=== PATIENT | female | born 1995 | race Caucasian/White ===

== ENCOUNTER → 2016-10-01 | Outpatient (CLI) | payer BC ==
[~2016-10-01] MED LIST: BIRTH CONTROL PO; CATHETER FLUSH 10 ML SYR IV PRN; CLIN-62 PO; CYCL10TA45 PO; DESO1TAB4 PO; DICY20TA57 PO; ESOM20TA PO; FAMO20TA5 PO; FLUC100T PO; HYDR25CA PO; HYOS0.1216 PO; IOHEXOL 350 MG/ML 100 ML (OMNIPAQUE 350) VIAL IV ONE; MAGN296S PO; NAPR500T3 PO; NITR-65 PO; NS 100 ML (IVPB) BAG IV ONE; OMEP40CA36 PO; ONDA8TAB13 PO; PANT40TA2 PO; PHEN200T27 PO; PRED20TA PO; SCR1T PO; SUCR1TAB PO; SUCR1TAB36 PO; SULF-222 PO; TRAM-42 PO; TRAM50TA2 PO
--- NOTE | 2016-10-01 16:20 | Diagnostic Imaging Report ---
PROCEDURE: CT head with and without contrast. TECHNIQUE: Multiple contiguous axial images were obtained through the brain before and after the administration of intravenous contrast. INDICATION: Tingling in the right side of the body. Headache. 80 mL of Omnipaque 350 is administered intravenously. FINDINGS: The unenhanced phase demonstrates no intracranial hemorrhage. The brain parenchyma has preserved fajardo-white matter differentiation. There is no hydrocephalus. No extra-axial fluid collection is seen. No abnormal enhancement is seen after contrast administration. The visualized portions of the paranasal sinuses demonstrate mild mucosal thickening in the sphenoidal sinuses. The calvarium appears unremarkable. IMPRESSION: 1. No intracranial abnormality. 2. Mild mucosal thickening in the sphenoidal sinuses. Dictated by: Dictated on workstation # [id number]
== END ==
LOC: RAD 15:15
PROVIDERS: ATTEND Internal Medicine
DX: G44.229 Chronic tension-type headache, not intractable (principal)
CPT/HCPCS: 70470

== ENCOUNTER → 2017-09-05 | Outpatient (CLI) | payer BC ==
[~2017-09-05] MED LIST changes: -CATHETER FLUSH 10 ML SYR IV PRN; +HYOS-20 PO; -HYOS0.1216 PO; -IOHEXOL 350 MG/ML 100 ML (OMNIPAQUE 350) VIAL IV ONE; +NAPR-915 PO; -NAPR500T3 PO; -NS 100 ML (IVPB) BAG IV ONE
--- NOTE | 2017-09-05 17:56 | Diagnostic Imaging Report ---
INDICATION: Left breast pain for several months. EXAMINATION: Sonographic interrogation of bilateral breasts was performed. FINDINGS: No sonographic abnormalities are seen. No solid or cystic masses detected. IMPRESSION: No sonographic abnormality is identified. ACR BI-RADS Category 1: Negative. Result letter will be mailed to the patient. Note: At least 10% of breast cancer is not imaged by mammography. Dictated by: Dictated on workstation # [id number]
== END ==
LOC: RAD 08:45
PROVIDERS: ATTEND Obstetrics & Gynecology
DX: N60.12 Diffuse cystic mastopathy of left breast (principal)